=== PATIENT | male | born 1960 | race Caucasian/White ===

== ENCOUNTER 2019-07-02 08:30 | Day surgery (SDC) | payer OTHER ==
[2019-07-02] MEDS ORDERED: PROPOFOL 20 ML (09:51)
[2019-07-02] MEDS ORDERED: FENTAnyl 50 MCG/ML VIAL (09:54)
== END 2019-07-02 14:26 | disposition home or self-care (01) ==
LOC: GIL 08:30
DX: R19.4 Change in bowel habit (principal); D12.5 Benign neoplasm of sigmoid colon; K64.8 Other hemorrhoids; I10 Essential (primary) hypertension
CPT/HCPCS: 45380; 88305